=== PATIENT | male | born 1935 | race Caucasian/White ===

== ENCOUNTER → 2017-08-02 | Outpatient (CLI) | payer MEDICARE, OTHER ==
[~2017-08-02] MED LIST: ABAT250V; ACET325 PO; AREDS 2 PO; ASPI325 PO; ASPI81CH PO; ATOR20 PO; CHOL10002 PO; CLOP75 PO; CO Q10200 MG PO; Cilostazol50 MG PO; ELIQUIS5 MG PO; FAMO40 PO; Icaps Areds Fo1 EACH PO; LEVO-T25 MCG PO; LEVSOD125 PO; MAGCHL64ER; MAGNESIUM250 MG PO; METO25ER PO; PANT40 PO; PRESERVISION A1 EACH PO; PROCTOSOL-HC30 GM; VITAMIN D22000 UNIT PO
== END ==
LOC: PLD 08:39 → LAB SHORT 08:39
DX: D48.5 Neoplasm of uncertain behavior of skin (principal)
CPT/HCPCS: 88305

== ENCOUNTER → 2017-08-10 | Outpatient (CLI) | payer MEDICARE, OTHER | LOC: LAB SHORT 14:37 → PLD 14:37 | DX: C44.319 Basal cell carcinoma of skin of other parts of face (principal); L57.8 Other skin changes due to chronic exposure to nonionizing radiation | CPT/HCPCS: 88305 ==

== ENCOUNTER 2018-08-24 12:54 | Day surgery (SDC) | payer MEDICARE, OTHER ==
[~2018-08-24] VITALS: Ht 180.3 cm; Wt 80.1 kg
[~2018-08-24 12:54] MED LIST changes: +Aspirin EC81 MG PO; +CILO100 PO; +Coenzyme Q10200 M2 PO; +I-Vite1 EACH PO; +LEVSOD25 PO; +Lipitor20 MG PO; +MAG6464 MG PO; +PEPCID40 MG PO; +SYNTHROID25 MCG PO
--- NOTE | 2018-08-24 15:23 | NUR ---
08/24/18 1523 Shahana Grider PT WAS GIVEN DC INSTRUCTIONS AND WAITING FOR RX FROM MD IN PROCEDURE
== END 2018-08-24 15:34 | disposition home or self-care (01) ==
LOC: ORSCSDS 12:54
PROVIDERS: Ophthalmology
PROC: 08SRXZZ Reposition Left Lower Eyelid, External Approach (ICD-10-PCS; principal; 2018-08-24 14:45)
PROC: 08SQXZZ Reposition Right Lower Eyelid, External Approach (ICD-10-PCS; principal; 2018-08-24 14:45)
DX: H02.132 Senile ectropion of right lower eyelid (principal); H02.135 Senile ectropion of left lower eyelid; H16.213 Exposure keratoconjunctivitis, bilateral; I48.91 Unspecified atrial fibrillation; Z79.01 Long term (current) use of anticoagulants; I25.10 Atherosclerotic heart disease of native coronary artery without angina pectoris; I10 Essential (primary) hypertension; K21.9 Gastro-esophageal reflux disease without esophagitis; E03.9 Hypothyroidism, unspecified; Z79.899 Other long term (current) drug therapy
CPT/HCPCS: J2250; J2704; J3010

== ENCOUNTER → 2019-02-13 | Outpatient (CLI) | payer MEDICARE, OTHER | END | disposition home or self-care (01) | LOC: PLD 15:41 → LAB SHORT 15:41 | DX: D48.5 Neoplasm of uncertain behavior of skin (principal) | CPT/HCPCS: 88305 ==

== ENCOUNTER 2019-02-14 07:42 | Day surgery (SDC) | payer MEDICARE, OTHER ==
[~2019-02-14] VITALS: Ht 180.3 cm; Wt 84.0 kg
--- NOTE | 2019-02-14 09:03 | NUR ---
02/14/19 0903 Kalen Hassan History, Chart, Medications and Allergies reviewed before start of procedure.MONITOR INTACT WITH CONTINUOUS PULSE OXIMETRY AND INTERMITTENT BP.3-LEAD EKG REVIEWED WITH PHYSICIAN PRIOR TO START OF PROCEDURE.Patient confirms NPO status and agrees with scheduled surgery.O2 VIA N/C INTACT THROUGHOUT SEDATION/PROCEDURE. PATIENT DETERMINED TO BE ASA APPROPRIATE FOR PROPOFOL SEDATION PRIOR TO START OF PROCEDURE BY DR. REN.
--- NOTE | 2019-02-14 09:34 | NUR ---
0845 Ambulatory in Day Surgery. Patient states colon prep results clear. History, Chart, Medications and Allergies reviewed before start of procedure. Lungs clear T/O to Auscultation. Patient confirms NPO status and agrees with scheduled surgery. Pre-Op teaching done. Pt verbalizes understanding. Patient States Post-Procedure ride home has been arranged.
== END 2019-02-14 22:34 | disposition home or self-care (01) ==
LOC: ORSCMMR 07:42 → ORD 09:00 → ORSCMMR 09:00
PROVIDERS: Internal Medicine Gastroenterology
PROC: 0DBL8ZX Excision of Transverse Colon, Via Natural or Artificial Opening Endoscopic, Diagnostic (ICD-10-PCS; principal; 2019-02-14 09:00)
PROC: 0DBC8ZX Excision of Ileocecal Valve, Via Natural or Artificial Opening Endoscopic, Diagnostic (ICD-10-PCS; principal; 2019-02-14 09:00)
PROC: 0DBN8ZX Excision of Sigmoid Colon, Via Natural or Artificial Opening Endoscopic, Diagnostic (ICD-10-PCS; principal; 2019-02-14 09:00)
PROC: 0DBK8ZX Excision of Ascending Colon, Via Natural or Artificial Opening Endoscopic, Diagnostic (ICD-10-PCS; principal; 2019-02-14 09:00)
DX: R19.5 Other fecal abnormalities (principal); K57.30 Diverticulosis of large intestine without perforation or abscess without bleeding; I48.0 Paroxysmal atrial fibrillation; E03.9 Hypothyroidism, unspecified; E78.00 Pure hypercholesterolemia, unspecified; Z79.01 Long term (current) use of anticoagulants; Z79.82 Long term (current) use of aspirin; Z79.899 Other long term (current) drug therapy
CPT/HCPCS: 88305; J2704; J7120

== ENCOUNTER → 2019-03-13 | Outpatient (CLI) | payer MEDICARE, OTHER | END | disposition home or self-care (01) | LOC: PLD 09:44 → LAB SHORT 09:44 | DX: C44.41 Basal cell carcinoma of skin of scalp and neck (principal) | CPT/HCPCS: 88305 ==

== ENCOUNTER → 2019-12-06 | Outpatient (CLI) | payer MEDICARE, OTHER | END | disposition home or self-care (01) | LOC: LAB SHORT 07:34 → PLD 07:34 | DX: D48.5 Neoplasm of uncertain behavior of skin (principal) | CPT/HCPCS: 88305 ==

== ENCOUNTER → 2020-01-10 | Outpatient (CLI) | payer MEDICARE, OTHER | END | disposition home or self-care (01) | LOC: PLD 08:54 → LAB SHORT 08:54 | DX: C44.310 Basal cell carcinoma of skin of unspecified parts of face (principal) | CPT/HCPCS: 88305 ==

== ENCOUNTER 2020-03-31 10:20 | Emergency (ER) | payer MEDICARE, OTHER ==
[~2020-03-31] VITALS: Ht 180.3 cm; Wt 81.7 kg
[~2020-03-31 10:20] MED LIST changes: -Aspirin EC81 MG PO; -LEVSOD25 PO; -Lipitor20 MG PO
[2020-03-31 12:26] LABS: BASOPHILS ABSOLUTE AUTO 0.01 K/mm3 (0.00-0.23); BASOPHILS PERCENT AUTO 0 % (0-2); EOSINOPHILS ABSOLUTE AUTO 0.01 K/mm3 (0.00-0.68); EOSINOPHILS PERCENT AUTO 0 % (0-6); Hematocrit 31.5 % (37.0-53.0); Hemoglobin 10.2 g/dL (13.5-17.5); IMMATURE GRAN ABSOLUTE AUTO 0.05 K/mm3 (0.00-0.10); IMMATURE GRAN PERCENT AUTO 1 % (0-1); LYMPHOCYTES ABSOLUTE AUTO 0.94 K/mm3 (0.84-5.20); LYMPHOCYTES PERCENT AUTO 10 % (21-46); MONOCYTES ABSOLUTE AUTO 0.81 K/mm3 (0.16-1.47); MONOCYTES PERCENT AUTO 8 % (4-13); Mean Corpuscular HGB 30.7 pg (26.0-34.0); Mean Corpuscular HGB Conc 32.4 g/dL (31.5-36.5); Mean Corpuscular Volume 95 fL (80-100); Mean Platelet Volume 9.9 fL (9.1-12.4); NEUTROPHILS ABSOLUTE AUTO 7.96 K/mm3 (1.96-9.15); NEUTROPHILS PERCENT AUTO 81 % (41-73); Platelet Count 142 K/mm3 (150-400); RDW Coefficient Variation 12.5 % (11.7-14.2); RDW Standard Deviation 43.4 fL (35.1-46.3); Red Blood Cell Count 3.32 M/mm3 (4.30-5.90); White Blood Cell Count 9.78 K/mm3 (4.00-11.30)
[2020-03-31 12:47] LABS: Alanine Aminotransfer (ALT/SGP 20 U/L (12-78); Albumin, Blood 2.9 g/dL (3.4-5.0); Albumin/Globulin Ratio 0.8 (0.8-1.8); Alk Phos 56 U/L (50-136); Anion Gap 6 mmol/L (6-16); Aspartate Aminotrans (AST/SGOT 17 U/L (12-37); Bilirubin, Total 0.7 mg/dL (0.1-1.0); Blood Urea Nitrogen 15 mg/dL (8-24); Bun/Creatinine Ratio 16.2 (12.0-20.0); CO2, Blood 26 mmol/L (21-32); Calcium, Blood 8.3 mg/dL (8.5-10.1); Chloride, Blood 105 mmol/L (98-108); Creatinine, Blood 0.93 mg/dL (0.60-1.20); Globulin, Blood 3.6 g/dL (2.2-4.0); Glomerular Filtration Rate >60 (60-); Glucose, Blood 129 mg/dL (70-99); Potassium, Blood 3.9 mmol/L (3.5-5.5); Sodium, Blood 137 mmol/L (136-145); Total Protein, Blood 6.5 g/dL (6.4-8.2)
[2020-03-31] MEDS ORDERED: ELIQUIS5 MG PO (12:52)
[2020-03-31] MEDS ORDERED: Lipitor20 MG PO (12:52)
[2020-03-31] MEDS ORDERED: PEPCID40 MG PO (12:52)
[2020-03-31] MEDS ORDERED: LEVSOD25 PO (12:52)
[2020-03-31] MEDS ORDERED: METO25ER PO (12:53)
[2020-03-31] MEDS ORDERED: CILO100 PO (12:53)
[2020-03-31] MEDS ORDERED: Aspirin EC81 MG PO (12:53)
[2020-03-31 13:07] LABS: International Normalized Ratio 1.05; Prothrombin Time Results 11.2 Sec (9.7-11.5)
[2020-03-31 14:44] LABS: Influenza A, PCR NEGATIVE (NEGATIVE); Influenza B, PCR NEGATIVE (NEGATIVE); Resp Syncytial Virus, PCR NEGATIVE (NEGATIVE); SARS-Cov-2 (COVID-19) PCR, MMC NEGATIVE (NEGATIVE)
== END 2020-03-31 16:13 | disposition short-term general hospital (02) ==
LOC: ER 10:20
PROVIDERS: Emergency Medicine
DX: S06.5X9A Traumatic subdural hemorrhage with loss of consciousness of unspecified duration, initial encounter (principal); I48.91 Unspecified atrial fibrillation; I10 Essential (primary) hypertension; E78.5 Hyperlipidemia, unspecified; Z20.822 Contact with and (suspected) exposure to COVID-19; Z79.01 Long term (current) use of anticoagulants; Z79.82 Long term (current) use of aspirin; Z79.899 Other long term (current) drug therapy; Z88.0 Allergy status to penicillin; Z87.891 Personal history of nicotine dependence; W18.30XA Fall on same level, unspecified, initial encounter
CPT/HCPCS: 0241U; 36415; 70450; 80053; 85025; 85610; 85730; 96365; 96366; 96368; 96375; 99285-25; C9132; J1100; J1170; J2150; J2405; J7030; J7050

== ENCOUNTER 2020-07-09 10:43 | Day surgery (SDC) | payer MEDICARE, OTHER ==
[~2020-07-09] VITALS: Ht 180.3 cm; Wt 78.5 kg
[~2020-07-09 10:43] MED LIST changes: +Aspirin EC81 MG PO; +LEVSOD25 PO; +Lipitor20 MG PO
--- NOTE | 2020-07-09 12:10 | NUR ---
PROCEDURAL TIME OUT PERFORMED FOR LINQ EXPLANT. PT DENIES ANY QUESTIONS PRIOR TO PROCEDURE.
--- NOTE | 2020-07-09 12:15 | NUR ---
LINQ HAS BEEN SUCCESSFULLY EXPLANTED. PT DENIES ANY PAIN OR DISCOMFORT AT SITE. DRESSING IN PLACE, NO BLEEDING OR SWELLING NOTED.
--- NOTE | 2020-07-09 12:45 | NUR ---
PT VERBALIZED UNDERSTANDING OF DISCHARGE INSTRUCTIONS AND FOLLOW UP INFO. OUT TO CAR VIA WHEELCHAIR.
== END 2020-07-09 23:39 | disposition home or self-care (01) ==
LOC: MHTC 10:43
DX: Z45.09 Encounter for adjustment and management of other cardiac device (principal); I10 Essential (primary) hypertension; I48.91 Unspecified atrial fibrillation
CPT/HCPCS: 33286; 36415; 80048; 85027; 85610; J3370; J7040

== ENCOUNTER → 2020-09-16 | Outpatient (CLI) | payer MEDICARE, OTHER | LOC: LAB 12:50 → LAB SHORT 12:50 | DX: D48.5 Neoplasm of uncertain behavior of skin (principal); C44.319 Basal cell carcinoma of skin of other parts of face; C44.219 Basal cell carcinoma of skin of left ear and external auricular canal; Z88.0 Allergy status to penicillin | CPT/HCPCS: 88305 ==

== ENCOUNTER → 2020-09-24 | Outpatient (CLI) | payer MEDICARE, OTHER | LOC: LAB 15:11 → LAB SHORT 15:11 | DX: C44.310 Basal cell carcinoma of skin of unspecified parts of face (principal); C44.319 Basal cell carcinoma of skin of other parts of face; Z88.0 Allergy status to penicillin | CPT/HCPCS: 88305 ==